=== PATIENT | male | born 1995 | race Asian ===

== ENCOUNTER 2018-04-10 18:32 | Emergency (ER) | payer OTHER ==
[2018-04-10] MEDS ORDERED: Propofol* 10 MG/ML 20 ML BTL IV PUSH ONE (22:47)
--- NOTE | 2018-04-10 23:58 | ED ---
Upper Extremity Pain - HPI Summary HPI Summary: Pt is 23 y/o M who presents to ED c/o injury to his right shoulder. He was snowboarding today when he fell. Pt notes that he is unable to move the right arm at all. Rates his pain as 7/10 in severity and describes it as aching - History of Current Complaint Chief Complaint: Concepcionj Stated Complaint: RT SHOULDER INJURY Time Seen by Provider: 04/10/18 22:08 Hx Obtained From: Patient Mechanism Of Injury: Fall From A Standing Position Onset/Duration: Started Hours Ago Timing: Constant Severity Currently: Moderate - 7/10 Pain Location: Shoulder Character: Aching Aggravating Factor(s): Nothing Alleviating Factor(s): Ice - Allergies/Home Medications Allergies/Adverse Reactions: Allergies Allergy/AdvReac Type Severity Reaction Status Date / Time No Known Allergies Allergy Verified 04/10/18 18:46 Home Medications: Home Medications NK [No Home Medications Reported] 04/11/18 [History Confirmed 04/11/18] PMH/Surg Hx/FS Hx/Imm Hx Endocrine/Hematology History: Denies: Hx Anticoagulant Therapy Cardiovascular History: Denies: Hx Cardiac Arrest Infectious Disease History: No Infectious Disease History: Reports: Traveled Outside the [place] in Last 30 Days - Family History Known Family History: Negative: Blood Disorder - Social History Alcohol Use: None Smoking Status (MU): Never Smoked Tobacco Review of Systems Negative: Fever Positive: Other - right shoulder pain All Other Systems Reviewed And Are Negative: Yes Physical Exam - Summary Physical Exam Summary: Appearance: Mallampati class 1, Well-appearing, Well-nourished, lying in bed comfortable Skin: Warm, dry, no obvious rash Eyes: sclera anicteric, no conjunctival pallor ENT: mucous membranes moist Neck: deferred Respiratory: No signs of respiratory distress Cardiovascular: Appears well perfused, pulses are nml Abdomen: deferred Musculoskeletal: Dislocated right shoulder Neurological: Awake and alert, mentation is normal, speech is fluent and appropriate Psychiatric: affect is normal, does not appear anxious or depressed Triage Information Reviewed: Yes Vital Signs On Initial Exam: Initial Vitals Temp Pulse Resp BP Pulse Ox 97.3 F 77 19 139/68 97 04/10/18 18:44 04/10/18 18:44 04/10/18 18:44 04/10/18 18:44 04/10/18 18:44 Vital Signs Reviewed: Yes Procedures - Joint Reduction Right Joint Reduction Site: shoulder (R) Conscious Sedation: Yes - Moderate sedation performed per protocol with propofol to good effect. Reduction Attempts: 1 - Reduction done with Meliton Stover PA-C Pre-Procedure NV Exam: Yes - nl Post Joint Reduction Film: exam indicated reduction, no post reduction film felt to be necessary Diagnostics - Vital Signs Vital Signs Temp Pulse Resp BP Pulse Ox 04/10/18 20:46 98.6 F 70 18 139/90 99 04/10/18 18:44 97.3 F 77 19 139/68 97 - Laboratory Lab Statement: Any lab studies that have been ordered have been reviewed, and results considered in the medical decision making process. - Radiology Shoulder X-ray Radiology Interpretation Completed By: ED Physician - Shows dislocated right shoulder, pending offical report. Course/Dx - Course Course Of Treatment: Pt is 23 y/o M who presents to ED c/o injury to his right shoulder. He was snowboarding today when he fell. Pt notes that he is unable to move the right arm at all. Rates his pain as 7/10 in severity and describes it as aching. X-ray revealed a dislocated shoulder. The dislocation was reduced while pt was moderately sedated mallampati class 1. He was given a sling and discharged home with a diagnosis of dislocated shoulder. Pt is agreeable with this plan. - Diagnoses Provider Diagnoses: Shoulder dislocation Discharge - Sign-Out/Discharge Documenting (check all that apply): Patient Departure - Discharge - Discharge Plan Condition: Improved Disposition: HOME Patient Education Materials: Shoulder Dislocation Exercises (GEN), Shoulder Dislocation (ED), How to Use a Sling (ED) Referrals: Hollis Urias MD [Medical Doctor] - 2 Weeks Additional Instructions: You are at risk for a recurrent dislocation over the next couple of weeks as the shoulder heals, so wear the sling even at night, and don't reach for things are lift or pull much until you can talk to the orthopedic surgeon in a couple of weeks. - Billing Disposition and Condition Condition: IMPROVED Disposition: Home - Attestation Statements Document Initiated by Scribe: Yes Documenting Scribe: Claudio Daniels Provider For Whom Scribe is Documenting (Include Credential): Dr. Fili Aguilera MD Scribe Attestation: I, Claudio Daniels, scribed for Dr. Fili Aguilera MD on 04/11/18 at 0331. Scribe Documentation Reviewed: Yes Provider Attestation: The documentation as recorded by the scribe, Claudio Daniels accurately reflects the service I personally performed and the decisions made by me, Dr. Fili Aguilera MD Status of Scribe Document: Viewed
[2018-04-11 01:24] VITALS: BP 115/76
== END 2018-04-11 01:23 | disposition home or self-care (01) ==
LOC: ED 18:32
DX: S43.014A Anterior dislocation of right humerus, initial encounter (principal); W19.XXXA Unspecified fall, initial encounter; Y93.23 Activity, snow (alpine) (downhill) skiing, snowboarding, sledding, tobogganing and snow tubing; Y92.9 Unspecified place or not applicable
CPT/HCPCS: 23650; 96374; 99283; J2704